=== PATIENT | male | born 1975 | race Caucasian/White ===

== ENCOUNTER 2020-10-17 09:28 | Emergency (ER) | payer OTHER ==
[~2020-10-17] VITALS: Ht 188 cm; Wt 93.0 kg
[~2020-10-17 09:28] MED LIST: AUGMENTIN 875-1 EACH PO; BACTRIM DS TAB1 EACH PO; BENTYL 20MG TAB20 MG PO; EXPECTORANT200 MG PO; FLEXERIL 10 MG10 MG PO; FLONASE 0.05% N16 GM; KEFLEX CAP 500500 MG PO; PHENERGAN 25 MG25 M1 PO
[2020-10-17 10:48] LABS: HEMOGLOBIN 14.9 gm/dl (14.0-17.5); RED BLOOD COUNT 4.53 M/UL (4.20-5.50); WHITE BLOOD COUNT 4.3 K/UL (4.5-11.0)
[2020-10-17 11:03] LABS: BUN/CREATININE RATIO 14 (0-10)
== END 2020-10-17 16:29 | disposition home or self-care (01) ==
LOC: ER1 09:28
PROVIDERS: Physician Assistant
DX: U07.1 COVID-19 (principal); Z90.49 Acquired absence of other specified parts of digestive tract; Z95.0 Presence of cardiac pacemaker
CPT/HCPCS: 71045; 80053; 82550; 82553; 83874; 84484; 85025; 93005; 99285; U0002

== ENCOUNTER 2021-02-09 11:57 | Emergency (ER) | payer OTHER ==
[2021-02-09 13:52] LABS: BUN/CREATININE RATIO 11 (0-10)
[2021-02-09] MEDS ORDERED: NAPROSYN500 MG PO (15:12)
== END 2021-02-09 15:44 | disposition home or self-care (01) ==
LOC: ER1 11:57
PROVIDERS: Physician Assistant
DX: S62.367A Nondisplaced fracture of neck of fifth metacarpal bone, left hand, initial encounter for closed fracture (principal); I10 Essential (primary) hypertension; J40 Bronchitis, not specified as acute or chronic; W20.8XXA Other cause of strike by thrown, projected or falling object, initial encounter; Y92.009 Unspecified place in unspecified non-institutional (private) residence as the place of occurrence of the external cause; Z20.822 Contact with and (suspected) exposure to COVID-19
CPT/HCPCS: 0240U; 29125; 71045; 73130; 80048; 99283

== ENCOUNTER 2021-10-27 13:36 | Emergency (ER) | payer OTHER ==
[~2021-10-27 13:36] MED LIST changes: +NAPROSYN500 MG PO
[2021-10-27] MEDS ORDERED: HYDROCODON-ACE1 EAC4 PO (17:14)
== END 2021-10-27 17:31 | disposition home or self-care (01) ==
LOC: ER1 13:36
DX: S30.0XXA Contusion of lower back and pelvis, initial encounter (principal); Z95.0 Presence of cardiac pacemaker; I11.9 Hypertensive heart disease without heart failure; V86.99XA Unspecified occupant of other special all-terrain or other off-road motor vehicle injured in nontraffic accident, initial encounter
CPT/HCPCS: 72100; 81001; 99283